=== PATIENT | male | born 1990 | race Caucasian/White ===

== ENCOUNTER 2018-10-26 22:08 | Inpatient (IN) | payer MEDICAID ==
[~2018-10-26] VITALS: Ht 177.8 cm; Wt 83.0 kg
[2018-10-26] MEDS ORDERED: PALI39DI IM (22:43)
[2018-10-26] MEDS ORDERED: OLAN10VI3 PO (22:43)
[2018-10-26 23:07] LABS: EOSINOPHILS % (AUTO) 4.7 % (1.0-6.0); HEMOGLOBIN 14.1 g/dL (13.5-17.5); MONOCYTES # (AUTO) 0.6 K/uL (0.1-1.0); NEUTROPHILS # (AUTO) 4.8 K/uL (1.8-7.7)
[2018-10-26 23:12] LABS: BASOPHILS % (AUTO) 0.7 % (0.0-2.0); HEMATOCRIT 43.2 % (41-53); LYMPHOCYTES # (AUTO) 2.1 K/uL (1.0-4.8); LYMPHOCYTES % (AUTO) 26.1 % (22.0-44.0); MEAN CORPUSCULAR HEMOGLOBIN 26.5 pg (26.0-34.0); MEAN CORPUSCULAR HGB CONC 32.6 G/dL (31.0-37.0); MEAN CORPUSCULAR VOLUME 81 fL (80-100); MONOCYTES % (AUTO) 8.1 % (2.0-9.0); NEUTROPHILS % (AUTO) 60.4 % (40.0-70.0); PLATELET COUNT (AUTO) 216 K/uL (150-450); RED BLOOD CELL COUNT(AUTO) 5.33 MIL/uL (4.50-5.90); RED CELL DISTRIBUTION WIDTH 12.6 % (11.5-14.5)
[2018-10-26 23:17] LABS: ANION GAP 8 mmol/L (8-16); CALCIUM, TOTAL 9.4 mg/dL (8.8-10.5); CARBON DIOXIDE 27 mmol/L (22-29); CHLORIDE 102 mmol/L (98-107); CREATININE 1.25 mg/dL (0.60-1.30); GLOMERULAR FILTR. RATE CALC > 60 mL/min (>60); GLUCOSE,RANDOM 104 mg/dL (70-110); POTASSIUM 4.4 mmol/L (3.5-5.1); SODIUM SERUM 137 mmol/L (136-145)
[2018-10-26 23:18] LABS: AMPHET/METH SCREEN,URINE NEGATIVE (NEGATIVE); BARBITURATE SCREEN, URINE NEGATIVE (NEGATIVE); BENZODIAZEPINES SCREEN,URINE NEGATIVE (NEGATIVE); CANNABINOID SCREEN,URINE NEGATIVE (NEGATIVE); COCAINE SCREEN,URINE NEGATIVE (NEGATIVE); METHADONE SCREEN, URINE NEGATIVE (NEGATIVE); OPIATE SCREEN,URINE NEGATIVE (NEGATIVE)
[2018-10-26 23:23] LABS: ALANINE AMINOTRANSFERASE 24 U/L (12-78); ALBUMIN 4.1 g/dL (3.4-5.0); ALKALINE PHOSPHATASE 118 U/L (46-116); ASPARTATE AMINOTRANSFERASE 20 U/L (15-37); BILIRUBIN,TOTAL 0.3 mg/dL (0.1-1.0); TOTAL PROTEIN, SERUM 7.9 g/dL (6.4-8.2)
[2018-10-26 23:23] LABS: PHENCYCLIDINE SCREEN,URINE NEGATIVE (NEGATIVE)
[2018-10-26 23:33] LABS: UREA NITROGEN, BLOOD 15 mg/dL (7-18)
[2018-10-27] MEDS ORDERED: HALOPERIDOL 5 MG TABLET PO ONE (01:30)
[2018-10-27] MEDS ORDERED: LORazepam 2 MG TABLET PO ONE (01:30)
[2018-10-27] MEDS ORDERED: DiphenhydrAMINE HCL 25 MG CAPSULE PO ONE (01:30)
[2018-10-27] MEDS ORDERED: HALOPERIDOL 5 MG TABLET PO PRN (03:00)
[2018-10-27 10:27] VITALS: BP 134/79
[2018-10-27 16:01] VITALS: BP 128/76
[2018-10-27] MEDS: LORazepam 2 MG TABLET PO PRN (17:33)
[2018-10-27] MEDS: ZOLPIDEM TARTRATE 10 MG TABLET PO PRN (20:12)
[2018-10-27] MEDS: OLANZapine 10 MG TABLET PO SCH (20:12)
[2018-10-27] MEDS ORDERED: OLAN10TA3 PO (20:42)
[2018-10-28 06:08] LABS: CHOL/HDL RATIO 4.7 (4.2-7.3); CHOLESTEROL 175 mg/dL (131-200); HDL CHOLESTEROL 37 mg/dL (40-60); LDL CHOL (CALC.) 101 mg/dL (0-130); TRIGLYCERIDES 183 mg/dL (15-150)
[2018-10-28 06:34] VITALS: BP 125/75
[2018-10-28 08:04] VITALS: BP 134/80
[2018-10-28] MEDS: NICOTINE 14 MG/24 HOUR PATCH TD SCH (08:13)
[2018-10-28] MEDS: LORazepam 2 MG TABLET PO PRN (11:58)
[2018-10-28] MEDS ORDERED: GuaiFENesin/D-METHORPHAN [SUGAR-FREE] 200-20MG/10 ML SYRUP UDCUP PO PRN (15:45)
[2018-10-28] MEDS ORDERED: IBUPROFEN 400 MG TABLET PO PRN (15:45)
[2018-10-28] MEDS ORDERED: NICOTINE 14 MG/24 HOUR PATCH TD PRN (15:45)
[2018-10-28] MEDS ORDERED: LOPERAMIDE HCL 2 MG CAPSULE PO PRN (15:45)
[2018-10-28] MEDS ORDERED: DOCUSATE SODIUM 100 MG CAPSULE PO PRN (15:45)
[2018-10-28] MEDS ORDERED: ACETAMINOPHEN 325 MG TABLET PO PRN (15:45)
[2018-10-28] MEDS ORDERED: ALBUTEROL SULFATE HFA 90 MCG/PUFF 8 GM INHALER IH PRN (15:45)
[2018-10-28] MEDS ORDERED: MAG HYDROX/AL HYDROX/SIMETH ES 30 ML SUSPENSION UDCUP PO PRN (15:45)
[2018-10-28] MEDS ORDERED: PETROLATUM,WHITE 28 GM JELLY TP PRN (15:45)
[2018-10-28] MEDS ORDERED: MAGNESIUM HYDROXIDE SUSPENSION 30 ML UDCUP PO PRN (15:45)
[2018-10-28] MEDS ORDERED: ONDANSETRON HCL 4 MG TABLET PO PRN (15:45)
[2018-10-28] MEDS ORDERED: CloNIDine HCL 0.1 MG TABLET PO PRN (15:45)
[2018-10-28 15:59] VITALS: BP 136/76
[2018-10-28 16:01] VITALS: BP 136/76
[2018-10-28] MEDS: OLANZapine 10 MG TABLET PO SCH (20:05)
[2018-10-28] MEDS: ZOLPIDEM TARTRATE 10 MG TABLET PO PRN (21:10)
[2018-10-29 05:25] VITALS: BP 110/80
[2018-10-29] MEDS: NICOTINE 14 MG/24 HOUR PATCH TD SCH (08:08)
[2018-10-29 08:10] VITALS: BP 122/78
[2018-10-29 16:01] VITALS: BP 134/75
[2018-10-29] MEDS: LITHIUM CARBONATE 300 MG CAPSULE PO SCH (16:04)
[2018-10-29] MEDS: OLANZapine 10 MG TABLET PO SCH (20:00)
[2018-10-29] MEDS: ZOLPIDEM TARTRATE 10 MG TABLET PO PRN (21:13)
[2018-10-30 06:34] VITALS: BP 132/80
[2018-10-30 08:01] VITALS: BP 119/72
[2018-10-30] MEDS: LITHIUM CARBONATE 300 MG CAPSULE PO SCH ×2 (08:19→16:02)
[2018-10-30] MEDS: NICOTINE 14 MG/24 HOUR PATCH TD SCH (08:19)
[2018-10-30] MEDS: LORazepam 2 MG TABLET PO PRN (12:43)
[2018-10-30 16:02] VITALS: BP 107/62
[2018-10-30] MEDS: ZOLPIDEM TARTRATE 10 MG TABLET PO PRN (21:23)
[2018-10-30] MEDS: OLANZapine 10 MG TABLET PO SCH (21:24)
[2018-10-31 04:45] VITALS: BP 122/67
[2018-10-31] MEDS: NICOTINE 14 MG/24 HOUR PATCH TD SCH (08:00)
[2018-10-31] MEDS: LITHIUM CARBONATE 300 MG CAPSULE PO SCH ×2 (08:00→16:09)
[2018-10-31 08:20] VITALS: BP 120/65
[2018-10-31] MEDS: LORazepam 2 MG TABLET PO PRN (16:07)
[2018-10-31 16:21] VITALS: BP 127/72
[2018-10-31] MEDS: OLANZapine 10 MG TABLET PO SCH (20:05)
[2018-10-31] MEDS: ZOLPIDEM TARTRATE 10 MG TABLET PO PRN (21:01)
[2018-11-01 00:25] VITALS: BP 121/68
[2018-11-01 08:07] VITALS: BP 140/72
[2018-11-01] MEDS: NICOTINE 14 MG/24 HOUR PATCH TD SCH (08:14)
[2018-11-01] MEDS: LITHIUM CARBONATE 300 MG CAPSULE PO SCH ×2 (08:14→16:05)
[2018-11-01 16:02] VITALS: BP 131/81
[2018-11-01] MEDS: LORazepam 2 MG TABLET PO PRN (16:17)
[2018-11-01] MEDS: OLANZapine 10 MG TABLET PO SCH (20:05)
[2018-11-01] MEDS: ZOLPIDEM TARTRATE 10 MG TABLET PO PRN (21:29)
[2018-11-02 06:40] VITALS: BP 126/78
[2018-11-02 08:03] VITALS: BP 126/64
[2018-11-02] MEDS: LITHIUM CARBONATE 300 MG CAPSULE PO SCH (08:12)
[2018-11-02] MEDS: NICOTINE 14 MG/24 HOUR PATCH TD SCH (08:12)
[2018-11-02 16:01] VITALS: BP 123/72
[2018-11-02] MEDS: LITHIUM CARBONATE 600 MG CAPSULE PO SCH (16:01)
[2018-11-02] MEDS: OLANZapine 10 MG TABLET PO SCH (20:01)
[2018-11-02] MEDS: ZOLPIDEM TARTRATE 10 MG TABLET PO PRN (21:03)
[2018-11-03 05:33] VITALS: BP 133/73
[2018-11-03 08:19] VITALS: BP 120/69
[2018-11-03] MEDS: LITHIUM CARBONATE 600 MG CAPSULE PO SCH (08:26)
[2018-11-03] MEDS: NICOTINE 14 MG/24 HOUR PATCH TD SCH (08:27)
[2018-11-03] MEDS ORDERED: OLAN10TA3 PO (12:11)
[2018-11-03] MEDS ORDERED: LITH600 PO (12:11)
== END 2018-11-03 13:28 | disposition home or self-care (01) | DRG 750 ==
LOC: EMS 22:09 → B2S 10-27 08:07
DX: F25.1 Schizoaffective disorder, depressive type (principal); R45.851 Suicidal ideations; F17.210 Nicotine dependence, cigarettes, uncomplicated; R10.13 Epigastric pain
CPT/HCPCS: G0480

== ENCOUNTER 2019-04-21 21:03 | Emergency (ER) | payer MEDICAID ==
[~2019-04-21] VITALS: Ht 175.3 cm; Wt 102.3 kg
[~2019-04-21 21:03] MED LIST: LITH600 PO; OLAN10TA3 PO
[2019-04-21] MEDS ORDERED: PB/HYOSCY/ATR/SCOP/LIDO/MAALOX 55 ML BOTTLE PO ONE (22:30)
[2019-04-21] MEDS ORDERED: FAMOTIDINE 20 MG TABLET PO ONE (22:30)
[2019-04-21 22:52] LABS: BASOPHILS % (AUTO) 0.5 % (0.0-2.0); EOSINOPHILS % (AUTO) 2.4 % (1.0-6.0); HEMATOCRIT 41.6 % (41-53); LYMPHOCYTES # (AUTO) 2.3 K/uL (1.0-4.8); LYMPHOCYTES % (AUTO) 23.1 % (22.0-44.0); MEAN CORPUSCULAR HEMOGLOBIN 27.2 pg (26.0-34.0); MEAN CORPUSCULAR HGB CONC 33.7 G/dL (31.0-37.0); MEAN CORPUSCULAR VOLUME 81 fL (80-100); MONOCYTES # (AUTO) 0.6 K/uL (0.1-1.0); MONOCYTES % (AUTO) 6.3 % (2.0-9.0); NEUTROPHILS # (AUTO) 6.6 K/uL (1.8-7.7); NEUTROPHILS % (AUTO) 67.7 % (40.0-70.0); PLATELET COUNT (AUTO) 247 K/uL (150-450); RED BLOOD CELL COUNT(AUTO) 5.16 MIL/uL (4.50-5.90); RED CELL DISTRIBUTION WIDTH 12.9 % (11.5-14.5)
[2019-04-21 23:03] LABS: ANION GAP 10 mmol/L (8-16); CARBON DIOXIDE 24 mmol/L (22-29); CHLORIDE 102 mmol/L (98-107); CREATININE 1.26 mg/dL (0.60-1.30); GLOMERULAR FILTR. RATE CALC > 60 mL/min (>60); GLUCOSE,RANDOM 135 mg/dL (70-110); SODIUM SERUM 136 mmol/L (136-145); UREA NITROGEN, BLOOD 13 mg/dL (7-18)
[2019-04-21 23:08] LABS: ALANINE AMINOTRANSFERASE 16 U/L (12-78); ALBUMIN 3.8 g/dL (3.4-5.0); ALKALINE PHOSPHATASE 89 U/L (46-116); ASPARTATE AMINOTRANSFERASE 15 U/L (15-37); BILIRUBIN,TOTAL 0.3 mg/dL (0.1-1.0); TOTAL PROTEIN, SERUM 7.6 g/dL (6.4-8.2)
[2019-04-22 00:54] VITALS: BP 148/88
== END 2019-04-22 01:58 | disposition home or self-care (01) ==
LOC: EMS 21:06
DX: R07.89 Other chest pain (principal); F31.9 Bipolar disorder, unspecified; F20.9 Schizophrenia, unspecified; F17.210 Nicotine dependence, cigarettes, uncomplicated; Z79.899 Other long term (current) drug therapy
CPT/HCPCS: 93005

== ENCOUNTER 2019-10-28 15:50 | Inpatient (IN) | payer MEDICAID ==
[~2019-10-28] VITALS: Ht 175.3 cm; Wt 100.2 kg
[2019-10-28] MEDS ORDERED: BENZ1TAB10 PO (15:56)
[2019-10-28] MEDS ORDERED: BUPR150SR PO (15:56)
[2019-10-28] MEDS ORDERED: QUET300T2 PO (15:56)
[2019-10-28 16:46] LABS: BASOPHILS % (AUTO) 0.1 % (0.0-2.0); HEMATOCRIT 43.3 % (41-53); HEMOGLOBIN 14.3 g/dL (13.5-17.5); LYMPHOCYTES # (AUTO) 2.3 K/uL (1.0-4.8); LYMPHOCYTES % (AUTO) 22.3 % (22.0-44.0); MEAN CORPUSCULAR HGB CONC 32.9 G/dL (31.0-37.0); MEAN CORPUSCULAR VOLUME 79 fL (80-100); MONOCYTES # (AUTO) 0.6 K/uL (0.1-1.0); MONOCYTES % (AUTO) 6.2 % (2.0-9.0); NEUTROPHILS # (AUTO) 7.2 K/uL (1.8-7.7); NEUTROPHILS % (AUTO) 70.4 % (40.0-70.0); PLATELET COUNT (AUTO) 274 K/uL (150-450); RED BLOOD CELL COUNT(AUTO) 5.47 MIL/uL (4.50-5.90); RED CELL DISTRIBUTION WIDTH 12.7 % (11.5-14.5)
[2019-10-28 16:53] LABS: ANION GAP 12 mmol/L (8-16); CALCIUM, TOTAL 9.9 mg/dL (8.8-10.5); CARBON DIOXIDE 24 mmol/L (22-29); CHLORIDE 101 mmol/L (98-107); CREATININE 1.22 mg/dL (0.60-1.30); GLOMERULAR FILTR. RATE CALC > 60 mL/min (>60); GLUCOSE,RANDOM 109 mg/dL (70-110); POTASSIUM 3.7 mmol/L (3.5-5.1); SODIUM SERUM 137 mmol/L (136-145); UREA NITROGEN, BLOOD 14 mg/dL (7-18)
[2019-10-28 16:59] LABS: ALANINE AMINOTRANSFERASE 17 U/L (12-78); ALBUMIN 4.6 g/dL (3.4-5.0); ALKALINE PHOSPHATASE 84 U/L (46-116); ASPARTATE AMINOTRANSFERASE 15 U/L (15-37); BILIRUBIN,TOTAL 0.6 mg/dL (0.1-1.0); TOTAL PROTEIN, SERUM 8.8 g/dL (6.4-8.2)
[2019-10-28 17:03] LABS: LITHIUM < 0.20 mmol/L (0.60-1.20)
[2019-10-28] MEDS ORDERED: OLANZapine 5 MG RAPDIS TABLET PO PRN (20:00)
[2019-10-28] MEDS: ZOLPIDEM TARTRATE 10 MG TABLET PO PRN (22:08)
[2019-10-28] MEDS: LORazepam 2 MG TABLET PO PRN (23:48)
[2019-10-29 01:33] LABS: APPEARANCE,URINE CLEAR (CLEAR); BILIRUBIN,URINE NEGATIVE (NEGATIVE); GLUCOSE, URINE (UA) NEGATIVE (NEGATIVE); KETONES,URINE TRACE mg/dL (NEGATIVE); LEUKOCYTE ESTERASE ,URINE NEGATIVE (NEGATIVE); NITRATE,URINE NEGATIVE (NEGATIVE); OCCULT BLOOD,URINE NEGATIVE (NEGATIVE); PROTEIN,URINE NEGATIVE (NEGATIVE); UROBILINOGEN,URINE 0.2 mg/dL (<=1.0)
[2019-10-29 01:40] LABS: AMPHET/METH SCREEN,URINE NEGATIVE (NEGATIVE); BARBITURATE SCREEN, URINE NEGATIVE (NEGATIVE); BENZODIAZEPINES SCREEN,URINE NEGATIVE (NEGATIVE); CANNABINOID SCREEN,URINE NEGATIVE (NEGATIVE); COCAINE SCREEN,URINE NEGATIVE (NEGATIVE); METHADONE SCREEN, URINE NEGATIVE (NEGATIVE); OPIATE SCREEN,URINE NEGATIVE (NEGATIVE)
[2019-10-29 01:44] LABS: PHENCYCLIDINE SCREEN,URINE NEGATIVE (NEGATIVE)
[2019-10-29] MEDS ORDERED: GuaiFENesin/D-METHORPHAN [SUGAR-FREE] 200-20MG/10 ML SYRUP UDCUP PO PRN (07:30)
[2019-10-29] MEDS ORDERED: IBUPROFEN 400 MG TABLET PO PRN (07:30)
[2019-10-29] MEDS ORDERED: LOPERAMIDE HCL 2 MG CAPSULE PO PRN (07:30)
[2019-10-29] MEDS ORDERED: CloNIDine HCL 0.1 MG TABLET PO PRN (07:30)
[2019-10-29] MEDS ORDERED: MAG HYDROX/AL HYDROX/SIMETH ES 30 ML SUSPENSION UDCUP PO PRN (07:30)
[2019-10-29] MEDS ORDERED: DOCUSATE SODIUM 100 MG CAPSULE PO PRN (07:30)
[2019-10-29] MEDS ORDERED: ONDANSETRON HCL 4 MG TABLET PO PRN (07:30)
[2019-10-29] MEDS ORDERED: ALBUTEROL SULFATE HFA 90 MCG/PUFF 8 GM INHALER IH PRN (07:30)
[2019-10-29] MEDS ORDERED: ACETAMINOPHEN 325 MG TABLET PO PRN (07:30)
[2019-10-29] MEDS ORDERED: PETROLATUM,WHITE 28 GM JELLY TP PRN (07:30)
[2019-10-29] MEDS ORDERED: MAGNESIUM HYDROXIDE SUSPENSION 30 ML UDCUP PO PRN (07:30)
[2019-10-29] MEDS: LORazepam 2 MG TABLET PO PRN ×2 (08:49→20:52)
[2019-10-29 12:15] VITALS: BP 124/77
[2019-10-29 16:11] VITALS: BP 140/67
[2019-10-29] MEDS: ZOLPIDEM TARTRATE 10 MG TABLET PO PRN (20:12)
[2019-10-30 05:25] VITALS: BP 125/76
[2019-10-30 08:12] VITALS: BP 133/77
[2019-10-30] MEDS: LORazepam 2 MG TABLET PO PRN (12:50)
[2019-10-30] MEDS: BuPROPion HCL XL 150 MG ER TABLET PO SCH (12:51)
[2019-10-30] MEDS: LITHIUM CARBONATE 600 MG CAPSULE PO SCH ×2 (12:51→17:08)
[2019-10-30] MEDS: OLANZapine 5 MG TABLET PO SCH ×2 (12:51→17:08)
[2019-10-30 16:15] VITALS: BP 138/77
[2019-10-30] MEDS ORDERED: OLANZapine 5 MG TABLET PO SCH (17:00)
[2019-10-30] MEDS ORDERED: LITHIUM CARBONATE 600 MG CAPSULE PO SCH (17:00)
[2019-10-30] MEDS: ZOLPIDEM TARTRATE 10 MG TABLET PO PRN (20:15)
[2019-10-30] MEDS: BENZTROPINE MESYLATE 1 MG TABLET PO SCH (20:15)
[2019-10-31 06:03] VITALS: BP 130/78
[2019-10-31 08:19] VITALS: BP 131/71
[2019-10-31] MEDS: OLANZapine 5 MG TABLET PO SCH ×2 (08:41→16:46)
[2019-10-31] MEDS: LORazepam 2 MG TABLET PO PRN ×2 (08:41→16:47)
[2019-10-31] MEDS: LITHIUM CARBONATE 600 MG CAPSULE PO SCH ×2 (08:41→16:46)
[2019-10-31] MEDS: BuPROPion HCL XL 150 MG ER TABLET PO SCH (08:41)
[2019-10-31 16:15] VITALS: BP 138/67
[2019-10-31] MEDS: ZOLPIDEM TARTRATE 10 MG TABLET PO PRN (20:10)
[2019-10-31] MEDS: BENZTROPINE MESYLATE 1 MG TABLET PO SCH (20:10)
[2019-11-01 00:11] VITALS: BP 143/97
[2019-11-01] MEDS: LORazepam 2 MG TABLET PO PRN ×4 (04:09→20:24)
[2019-11-01] MEDS: BuPROPion HCL XL 150 MG ER TABLET PO SCH (08:48)
[2019-11-01] MEDS: OLANZapine 5 MG TABLET PO SCH ×2 (08:48→16:00)
[2019-11-01] MEDS: LITHIUM CARBONATE 600 MG CAPSULE PO SCH ×2 (08:48→16:00)
[2019-11-01 09:15] VITALS: BP 132/86
[2019-11-01 16:29] VITALS: BP 129/84
[2019-11-01] MEDS: BENZTROPINE MESYLATE 1 MG TABLET PO SCH (20:24)
[2019-11-01] MEDS: ZOLPIDEM TARTRATE 10 MG TABLET PO PRN (20:24)
[2019-11-02 05:16] VITALS: BP 123/67
[2019-11-02 08:18] VITALS: BP 136/92
[2019-11-02] MEDS: LITHIUM CARBONATE 600 MG CAPSULE PO SCH ×2 (08:39→16:35)
[2019-11-02] MEDS: BuPROPion HCL XL 150 MG ER TABLET PO SCH (08:39)
[2019-11-02] MEDS: OLANZapine 5 MG TABLET PO SCH (08:39)
[2019-11-02] MEDS: NICOTINE 14 MG/24 HOUR PATCH TD PRN (14:40)
[2019-11-02 16:09] VITALS: BP 128/72
[2019-11-02] MEDS: OLANZapine 10 MG TABLET PO SCH (16:35)
[2019-11-02] MEDS: BENZTROPINE MESYLATE 1 MG TABLET PO SCH (20:24)
[2019-11-02] MEDS: ZOLPIDEM TARTRATE 10 MG TABLET PO PRN (20:53)
[2019-11-02] MEDS: LORazepam 2 MG TABLET PO PRN (20:53)
[2019-11-03 00:22] VITALS: BP 132/81
[2019-11-03 02:43] VITALS: BP 126/83
[2019-11-03] MEDS: OLANZapine 10 MG TABLET PO SCH ×2 (08:24→16:58)
[2019-11-03] MEDS: BuPROPion HCL XL 150 MG ER TABLET PO SCH (08:24)
[2019-11-03] MEDS: LITHIUM CARBONATE 600 MG CAPSULE PO SCH ×2 (08:24→16:58)
[2019-11-03 08:57] VITALS: BP_SYST 123; BP_SYST 143; BP_DIAS 74; BP_DIAS 87
[2019-11-03 16:14] VITALS: BP 134/78
[2019-11-03] MEDS: BENZTROPINE MESYLATE 1 MG TABLET PO SCH (20:39)
[2019-11-03] MEDS: ZOLPIDEM TARTRATE 10 MG TABLET PO PRN (20:39)
[2019-11-03] MEDS: NICOTINE 14 MG/24 HOUR PATCH TD PRN (20:40)
[2019-11-04 06:11] VITALS: BP 142/92
[2019-11-04 08:12] VITALS: BP 137/97
[2019-11-04] MEDS: LITHIUM CARBONATE 600 MG CAPSULE PO SCH ×2 (08:21→16:30)
[2019-11-04] MEDS: OLANZapine 10 MG TABLET PO SCH ×2 (08:21→16:30)
[2019-11-04] MEDS: BuPROPion HCL XL 150 MG ER TABLET PO SCH (08:21)
[2019-11-04 16:13] VITALS: BP 132/78
[2019-11-04] MEDS: ZIPRASIDONE HCL 20 MG CAPSULE PO SCH (16:30)
[2019-11-04] MEDS: BENZTROPINE MESYLATE 1 MG TABLET PO SCH (20:17)
[2019-11-04] MEDS: ZOLPIDEM TARTRATE 10 MG TABLET PO PRN (20:17)
[2019-11-04] MEDS: NICOTINE 14 MG/24 HOUR PATCH TD PRN (21:07)
[2019-11-05 04:20] VITALS: BP 132/88
[2019-11-05] MEDS: ZIPRASIDONE HCL 20 MG CAPSULE PO SCH ×2 (06:16→16:40)
[2019-11-05 08:17] VITALS: BP 118/77
[2019-11-05] MEDS: BuPROPion HCL XL 150 MG ER TABLET PO SCH (08:43)
[2019-11-05] MEDS: OLANZapine 10 MG TABLET PO SCH ×2 (08:43→16:40)
[2019-11-05] MEDS: LITHIUM CARBONATE 600 MG CAPSULE PO SCH ×2 (08:43→16:40)
[2019-11-05 16:10] VITALS: BP 131/86
[2019-11-05] MEDS: ZOLPIDEM TARTRATE 10 MG TABLET PO PRN (20:39)
[2019-11-05] MEDS: BENZTROPINE MESYLATE 1 MG TABLET PO SCH (20:39)
[2019-11-05] MEDS: NICOTINE 14 MG/24 HOUR PATCH TD PRN (21:47)
[2019-11-06 02:40] VITALS: BP 131/85
[2019-11-06] MEDS: LORazepam 2 MG TABLET PO PRN (06:12)
[2019-11-06] MEDS: ZIPRASIDONE HCL 20 MG CAPSULE PO SCH (06:12)
[2019-11-06 08:28] VITALS: BP 134/83
[2019-11-06] MEDS: OLANZapine 10 MG TABLET PO SCH (08:39)
[2019-11-06] MEDS: LITHIUM CARBONATE 600 MG CAPSULE PO SCH (08:39)
[2019-11-06] MEDS: BuPROPion HCL XL 150 MG ER TABLET PO SCH (08:39)
[2019-11-06] MEDS ORDERED: ZIPR20CA2 PO (10:43)
[2019-11-06] MEDS ORDERED: OLAN10TA3 PO (10:43)
== END 2019-11-06 13:00 | disposition home or self-care (01) | DRG 750 ==
LOC: EMS 15:50 → B3A 10-29 10:46
PROVIDERS: ADMIT Psychiatry & Neurology Psychiatry; ATTEND Psychiatry & Neurology Psychiatry
DX: F25.0 Schizoaffective disorder, bipolar type (principal); G44.209 Tension-type headache, unspecified, not intractable; G47.00 Insomnia, unspecified; R45.850 Homicidal ideations; F17.210 Nicotine dependence, cigarettes, uncomplicated; R45.851 Suicidal ideations; R03.0 Elevated blood-pressure reading, without diagnosis of hypertension
CPT/HCPCS: 87426; G0480

== ENCOUNTER 2019-11-30 08:33 | Emergency (ER) | payer MEDICAID ==
[~2019-11-30] VITALS: Ht 175.3 cm; Wt 100.0 kg
[~2019-11-30 08:33] MED LIST changes: +BENZ1TAB10 PO; +BUPR150SR PO; +ZIPR20CA2 PO
[2019-11-30] MEDS ORDERED: KETOROLAC TROMETHAMINE 30 MG/ML VIAL IVP ONE (09:15)
[2019-11-30] MEDS ORDERED: SODIUM CHLORIDE 0.9% 1,000 ML IV ONE (09:15)
[2019-11-30] MEDS ORDERED: HYD25 PO (09:20)
[2019-11-30 10:03] LABS: BASOPHILS % (AUTO) 0.2 % (0.0-2.0); EOSINOPHILS % (AUTO) 0.9 % (1.0-6.0); HEMATOCRIT 42.5 % (41-53); HEMOGLOBIN 14.1 g/dL (13.5-17.5); LYMPHOCYTES # (AUTO) 0.9 K/uL (1.0-4.8); LYMPHOCYTES % (AUTO) 9.4 % (22.0-44.0); MEAN CORPUSCULAR HEMOGLOBIN 26.1 pg (26.0-34.0); MEAN CORPUSCULAR HGB CONC 33.1 G/dL (31.0-37.0); MEAN CORPUSCULAR VOLUME 79 fL (80-100); MONOCYTES # (AUTO) 0.5 K/uL (0.1-1.0); MONOCYTES % (AUTO) 5.4 % (2.0-9.0); NEUTROPHILS # (AUTO) 8.3 K/uL (1.8-7.7); NEUTROPHILS % (AUTO) 84.1 % (40.0-70.0); PLATELET COUNT (AUTO) 249 K/uL (150-450); RED BLOOD CELL COUNT(AUTO) 5.39 MIL/uL (4.50-5.90); RED CELL DISTRIBUTION WIDTH 12.5 % (11.5-14.5)
[2019-11-30 10:14] LABS: CALCIUM, TOTAL 9.5 mg/dL (8.8-10.5); CREATININE 1.53 mg/dL (0.60-1.30); POTASSIUM 3.9 mmol/L (3.5-5.1)
[2019-11-30 10:20] LABS: BILIRUBIN,TOTAL 0.4 mg/dL (0.1-1.0); TOTAL PROTEIN, SERUM 7.8 g/dL (6.4-8.2)
[2019-11-30 10:56] LABS: APPEARANCE,URINE CLEAR (CLEAR); BILIRUBIN,URINE NEGATIVE (NEGATIVE); GLUCOSE, URINE (UA) NEGATIVE (NEGATIVE); KETONES,URINE NEGATIVE (NEGATIVE); LEUKOCYTE ESTERASE ,URINE NEGATIVE (NEGATIVE); NITRATE,URINE NEGATIVE (NEGATIVE); OCCULT BLOOD,URINE NEGATIVE (NEGATIVE); PROTEIN,URINE NEGATIVE (NEGATIVE)
[2019-11-30 12:21] VITALS: BP 138/102
== END 2019-11-30 12:24 | disposition home or self-care (01) ==
LOC: EMS 08:33
DX: R10.32 Left lower quadrant pain (principal); R11.2 Nausea with vomiting, unspecified; F31.9 Bipolar disorder, unspecified; F20.9 Schizophrenia, unspecified; F17.210 Nicotine dependence, cigarettes, uncomplicated
CPT/HCPCS: 36415; 74176; 80053; 80178; 81003; 83690; 85025; 96361; 96374; 99284; J1885; J7030

== ENCOUNTER 2020-09-21 14:43 | Emergency (ER) | payer MEDICAID ==
[~2020-09-21] VITALS: Ht 175.3 cm; Wt 104.5 kg
[~2020-09-21 14:43] MED LIST changes: +HYD25 PO; -LITH600 PO; +LITH600C5 PO; -OLAN10TA3 PO; +OLAN10TA74 PO
[2020-09-21] MEDS ORDERED: IBUPROFEN 600 MG TABLET PO ONE (15:15)
[2020-09-21 17:19] VITALS: BP 129/87
== END 2020-09-21 17:24 | disposition home or self-care (01) ==
LOC: EMS 14:43
DX: M79.672 Pain in left foot (principal); F31.9 Bipolar disorder, unspecified; F20.9 Schizophrenia, unspecified; F17.210 Nicotine dependence, cigarettes, uncomplicated; Z79.899 Other long term (current) drug therapy
CPT/HCPCS: 99284

== ENCOUNTER 2021-03-25 12:50 | Emergency (ER) | payer MEDICAID ==
[~2021-03-25] VITALS: Ht 175.3 cm; Wt 113.6 kg
[~2021-03-25 12:50] MED LIST changes: -HYD25 PO; +HYDR-4527 PO
[2021-03-25] MEDS ORDERED: BACITRACIN 0.9 GM PACKET OINTMENT TP ONE (14:45)
[2021-03-25] MEDS ORDERED: PERTUSS(ACELL),DIPH,TET VAC/PF 0.5 ML SYRINGE IM. ONE (14:45)
[2021-03-25] MEDS ORDERED: IBUPROFEN 600 MG TABLET PO ONE (14:45)
[2021-03-25] MEDS ORDERED: SODIUM CHLORIDE 0.9% 250 ML IRRIG SOLUTION BOTTLE IRRIG ONE (14:45)
[2021-03-25] MEDS ORDERED: CEPHALEXIN MONOHYDRATE 500 MG CAPSULE PO ONE (14:45)
[2021-03-25] MEDS ORDERED: CEPH500C3 PO (14:45)
[2021-03-25 15:24] VITALS: BP 132/82
== END 2021-03-25 15:36 | disposition home or self-care (01) ==
LOC: EMS 12:50
DX: S91.312A Laceration without foreign body, left foot, initial encounter (principal); F31.9 Bipolar disorder, unspecified; F20.9 Schizophrenia, unspecified; F17.210 Nicotine dependence, cigarettes, uncomplicated; Z79.899 Other long term (current) drug therapy; W45.8XXA Other foreign body or object entering through skin, initial encounter; Y93.89 Activity, other specified; Y92.89 Other specified places as the place of occurrence of the external cause; Y99.8 Other external cause status
CPT/HCPCS: 90471; 90715; 99283

== ENCOUNTER 2021-10-17 11:48 | Emergency (ER) | payer MEDICAID ==
[~2021-10-17] VITALS: Ht 175.3 cm; Wt 95.5 kg
[~2021-10-17 11:48] MED LIST changes: -BENZ1TAB10 PO; +BENZ1TAB96 PO; +BUPR-72 PO; -BUPR150SR PO; +CEPH-558 PO; -ZIPR20CA2 PO; +ZIPR20CA38 PO
[2021-10-17] MEDS ORDERED: KETOROLAC TROMETHAMINE 30 MG/ML VIAL IM ONE (14:15)
[2021-10-17] MEDS ORDERED: BACLOFEN 10 MG TABLET PO ONE (14:15)
[2021-10-17] MEDS ORDERED: CITA-108 PO (14:19)
[2021-10-17] MEDS ORDERED: ATOR20TA65 PO (14:19)
[2021-10-17] MEDS ORDERED: OLAN5TAB77 PO (14:19)
[2021-10-17] MEDS ORDERED: TRAZ-252 PO (14:19)
[2021-10-17] MEDS ORDERED: CLON0.1T PO (14:19)
[2021-10-17] MEDS ORDERED: PALI6TAB15 PO (14:19)
[2021-10-17] MEDS ORDERED: ARIP10TA38 PO (14:19)
[2021-10-17] MEDS ORDERED: BENZ2TAB76 PO (14:19)
[2021-10-17 14:26] LABS: BASOPHILS % (AUTO) 0.4 % (0.0-2.0); EOSINOPHILS % (AUTO) 2.8 % (1.0-6.0); HEMATOCRIT 41.6 % (41-53); HEMOGLOBIN 13.7 g/dL (13.5-17.5); LYMPHOCYTES # (AUTO) 1.9 K/uL (1.0-4.8); LYMPHOCYTES % (AUTO) 21.9 % (22.0-44.0); MEAN CORPUSCULAR HEMOGLOBIN 26.3 pg (26.0-34.0); MEAN CORPUSCULAR HGB CONC 32.9 G/dL (31.0-37.0); MEAN CORPUSCULAR VOLUME 80 fL (80-100); MONOCYTES # (AUTO) 0.6 K/uL (0.1-1.0); MONOCYTES % (AUTO) 6.4 % (2.0-9.0); NEUTROPHILS # (AUTO) 5.9 K/uL (1.8-7.7); NEUTROPHILS % (AUTO) 68.5 % (40.0-70.0); PLATELET COUNT (AUTO) 244 K/uL (150-450); RED BLOOD CELL COUNT(AUTO) 5.19 MIL/uL (4.50-5.90); RED CELL DISTRIBUTION WIDTH 12.7 % (11.5-14.5)
[2021-10-17 14:35] LABS: ANION GAP 7 mmol/L (8-16); CARBON DIOXIDE 28 mmol/L (22-29); CHLORIDE 105 mmol/L (98-107); CREATININE 1.24 mg/dL (0.60-1.30); GLUCOSE,RANDOM 113 mg/dL (70-110); POTASSIUM 3.8 mmol/L (3.5-5.1); SODIUM SERUM 140 mmol/L (136-145); UREA NITROGEN, BLOOD 12 mg/dL (7-18)
[2021-10-17 14:38] LABS: GLOMERULAR FILTR. RATE CALC > 60 mL/min (>60)
[2021-10-17 15:00] LABS: CREATINE KINASE, TOTAL ONLY 84 U/L (39-308)
[2021-10-17] MEDS ORDERED: BACL10TA PO (15:19)
[2021-10-17] MEDS ORDERED: IBUP-2070 PO (15:20)
[2021-10-17 15:37] VITALS: BP 127/71
== END 2021-10-17 16:12 | disposition home or self-care (01) ==
LOC: EMS 11:50
DX: M79.651 Pain in right thigh (principal); F20.9 Schizophrenia, unspecified; F31.9 Bipolar disorder, unspecified; F17.210 Nicotine dependence, cigarettes, uncomplicated
CPT/HCPCS: 99283; 80048; 82550; 85025; 36415; 96372; J1885